=== PATIENT | male | born 1940 | race Caucasian/White ===

== ENCOUNTER 2017-08-15 07:06 | Day surgery (SDC) | payer MEDICARE, BC ==
[~2017-08-15] VITALS: Ht 170.2 cm; Wt 94.8 kg
[2017-08-15 07:30] VITALS: BP 148/92; PULSE 74; TEMP 98.7
[2017-08-15] MEDS ORDERED: METAMUCIL MUL0.52 GM PO (07:34)
[2017-08-15] MEDS ORDERED: DIOVAN HCT 25 M1 TAB PO (07:35)
[2017-08-15] MEDS ORDERED: BETAPACE 120MG120 MG PO (07:36)
[2017-08-15] MEDS ORDERED: ZYLOPRIM 100MG100 MG PO (07:36)
[2017-08-15] MEDS ORDERED: MASON NATURAL2000 IU PO (07:50)
[2017-08-15] MEDS ORDERED: EPA FISH OIL1000 MG PO (07:50)
[2017-08-15] MEDS ORDERED: CALCIUM CARBON650 M2 PO (07:52)
[2017-08-15] MEDS ORDERED: PRAVACHOL10 MG PO (07:53)
[2017-08-15] MEDS ORDERED: ASPIRIN 81M81 MG/TA2 PO (07:53)
[2017-08-15] MEDS ORDERED: [UNRECOGNIZED DRUG - OTHER] PO (07:55)
[2017-08-15] MEDS ORDERED: FLOMAX 0.40.4 MG/CAP PO (07:55)
[2017-08-15] MEDS ORDERED: DIOVAN 80MG80 MG PO (07:56)
[2017-08-15 09:00] VITALS: BP 139/85; PULSE 72; TEMP 97.7
[2017-08-15 09:15] VITALS: BP 117/73; PULSE 70
[2017-08-15 09:30] VITALS: BP 113/77; PULSE 70
[2017-08-15 09:45] VITALS: BP 109/70; PULSE 70
== END 2017-08-15 10:08 | disposition home or self-care (01) ==
LOC: SDCO 07:06
DX: Z12.11 Encounter for screening for malignant neoplasm of colon (principal); K64.0 First degree hemorrhoids; E11.9 Type 2 diabetes mellitus without complications; I10 Essential (primary) hypertension; I48.91 Unspecified atrial fibrillation; Z86.010 Personal history of colon polyps; Z85.828 Personal history of other malignant neoplasm of skin
CPT/HCPCS: OP; J2250; J3010; J7030

== ENCOUNTER 2024-03-19 09:09 | Day surgery (SDC) | payer MEDICARE, BC ==
[2024-03-19] VITALS (8 sets, daily range): BP systolic 127–161; BP diastolic 68–97; PULSE 60–75; TEMP 98.2
[~2024-03-19] VITALS: Ht 170.3 cm; Wt 89.0 kg
[~2024-03-19 09:09] MED LIST: 1/2 NS 1,000 ML IV SCH; ASPIRIN 81M81 MG/TA2 PO; BETAPACE 120MG120 MG PO; CALCIUM CARBON650 M2 PO; DIOVAN 80MG80 MG PO; DIOVAN HCT 25 M1 TAB PO; EPA FISH OIL1000 MG PO; FLOMAX 0.40.4 MG/CAP PO; MASON NATURAL2000 IU PO; METAMUCIL MUL0.52 GM PO; PRAVACHOL10 MG PO; ZYLOPRIM 100MG100 MG PO; [UNRECOGNIZED DRUG - OTHER] PO; ceFAZolin 2 G in Water For Injection,Sterile 20 ML IV SCH
[2024-03-19 09:57] LABS: HEMATOCRIT 40.4 % (42.0-52.0); MEAN CELL VOLUME 92 fl (80.0-100.0); MEAN CORPUSCULAR HEMOGLOBIN 32 pg (27-31); MEAN CORPUSCULAR HGB CONC 35 g/dl (33.0-37.0); PLATELET COUNT 246 K/mm3 (130-400); REDCELL DISTRIBUTION WIDTH-CV 13.8 % (11.5-14.5)
[2024-03-19 10:11] LABS: INR 1.1 (0.8-3.0); PROTHROMBIN TIME 12.2 SECONDS (9.7-12.8)
[2024-03-19 10:15] LABS: CALCIUM 9.7 mg/dL (8.4-10.2); CREATININE, serum 1.56 mg/dL (0.72-1.25); POTASSIUM 4.1 mEq/L (3.5-4.5)
[2024-03-19] MEDS ORDERED: ELIQUIS 5MG PO (10:25)
[2024-03-19] MEDS ORDERED: BETAPACE 80MG80 MG PO (10:26)
[2024-03-19] MEDS ORDERED: TOPROL XL 25MG25 MG PO (10:26)
[2024-03-19] MEDS ORDERED: METAMUCIL3.4 GM/DOS PO (10:27)
[2024-03-19] MEDS ORDERED: VITAMIN D 400400 IU PO (10:28)
[2024-03-19] MEDS ORDERED: NS 1,000 ML IV.SOLN. IR SCH (13:35)
--- NOTE | 2024-03-19 13:47 | NUR ---
See Merge report for procedural sedation/notes
[2024-03-19] MEDS ORDERED: Midazolam 2 MG/2 ML VIAL IV SCH (13:56)
[2024-03-19] MEDS ORDERED: fentaNYL 50 MCG/ML 2 ML VIAL IV SCH (13:56)
--- NOTE | 2024-03-19 14:35 | NUR ---
Pt back to [facility] - bedside handoff performed with CHUY Cooper - vitals initiated and stable, left upper chest dressing site stable. Call light in reach, at bedside
[2024-03-19] MEDS ORDERED: CEPHALEXIN500 M1 PO (14:41)
--- NOTE | 2024-03-19 17:02 | NUR ---
PT TOLERATED RECOVERY PERIOD WELL. VS REMAINED WITHIN NORMAL LIMITS. PT FREE FROM ACUTE CONCERNS AND COMPLAINTS UPON DISCHARGE. PT ASSISTED TO MAIN LOBBY VIA WHEELCHAIR. IV DISCONTINUED. CHEST DRESSING REMAINED CLEAN DRY AND INTACT. PT VERBALIZED UNDERSTANDING OF DISCHARGE INSTRUCTIONS.
== END 2024-03-19 17:03 | disposition home or self-care (01) ==
LOC: COL.CAR 09:09
PROVIDERS: Internal Medicine Cardiovascular Disease
DX: Z45.010 Encounter for checking and testing of cardiac pacemaker pulse generator [battery] (principal); G47.33 Obstructive sleep apnea (adult) (pediatric)
CPT/HCPCS: C1785; J0665-JZ; J0688; J0690; J2250; J3010; J7030